=== PATIENT | female | born 1990 | race Caucasian/White ===

== ENCOUNTER → 2021-07-23 08:30 | Outpatient (CLI) | payer BC, SELFPAY ==
[2021-07-23 20:34] LABS: SARS-CoV-2 RNA PCR Negative
== END ==
PROVIDERS: PCP Family Medicine; Visit Provider Family Medicine
DX: R68.83 Chills (without fever) (principal); J02.0 Streptococcal pharyngitis; Z20.822 Contact with and (suspected) exposure to COVID-19
CPT/HCPCS: C9803; U0003; U0005